=== PATIENT | female | born 1990 | race Caucasian/White ===

== ENCOUNTER 2024-11-13 13:01 | Emergency (ER) | payer MEDICAID ==
[~2024-11-13] VITALS: Ht 157.5 cm; Wt 63.6 kg
--- NOTE | 2024-11-13 13:29 | Physician Documentation ---
History of Present Illness ~ Chief Complaint: Bite-insect Stated Complaint: SPIDER BITE Time Seen by MD: 13:19 OK to notify your PCP?: Yes Primary Medical Doctor: RADAMES VELASQUEZ Source: patient, RN/MD, RN notes reviewed, old records Mode of Arrival: POV Exam Limitations: no limitations Medication Reconciliation Allergies: Coded Allergies: Sulfa (Sulfonamide Antibiotics) (Verified Allergy, Mild, 12/12/10) ibuprofen (Verified Allergy, Mild, HIVES, 12/12/10) Past Medical History Past Medical History: Anxiety, Depression Past Surgical History: no surgical history Alcohol Use: None Drug Use: none Lives In: Home Review of Systems All Other Systems at this time: Reviewed and Negative Physical Exam Vital Signs: RN Vital Signs have been reviewed: Yes, Temperature: 98.5, Source: Temporal, Heart Rate: 96, Respiratory Rate: 18, BP: 126/94, Pulse Oximetry: 99, Weight: 63.600 Oxygen Flow Rate: 0 Progress Results/Orders Results/Orders Vital Signs 11/13/24 11/13/24 11/13/24 13:05 13:42 13:42 Temp 98.5 98.5 Pulse 96 91 Resp 18 16 16 B/P (MAP) 126/94 130/89 (103) Pulse Ox 99 99 O2 Flow Rate 0 0 Departure Referrals: NO PRIMARY CARE PROVIDER (PCP) Signature Scribe Signature: x Attestation: The note accurately reflects work and decisions made by me.Jonas Mandujano MD 11/13/24 13:29 JONAS MANDUJANO MD November 13, 2024 13:29
[2024-11-13 13:42] VITALS: BP 130/89; PULSE 91; RESP 16; TEMP 98.5; O2SAT 99
== END 2024-11-13 14:50 | disposition left against medical advice (07) ==
LOC: ER 13:02
DX: S30.861A Insect bite (nonvenomous) of abdominal wall, initial encounter (principal); Z53.21 Procedure and treatment not carried out due to patient leaving prior to being seen by health care provider; W57.XXXA Bitten or stung by nonvenomous insect and other nonvenomous arthropods, initial encounter; Y93.89 Activity, other specified; Y92.89 Other specified places as the place of occurrence of the external cause; Y99.8 Other external cause status